=== PATIENT | female | born 1985 | race Caucasian/White ===

== ENCOUNTER 2020-03-23 08:21 | Day surgery (SDC) | payer BC ==
[~2020-03-23 08:21] MED LIST: 50% Dextrose in Water 50 ML Syringe IVPUSH PRN; Albuterol 0.083% 2.5 MG/3 ML Neb Soln NEB PRN; Atropine 0.1 MG/ML 10 ML Syringe IVPUSH PRN; EPINEPHrine 1:10,000 1 MG/10 ML Syringe IVPUSH PRN; Lactated Ringers 1,000 ML IV SCH; Lidocaine 2% 5 ML SDV ONE; Midazolam 1 MG/ML 2 ML SDV ONE; Naloxone 0.4 MG/ML Syringe IVPUSH PRN; Propofol 200 MG/20 ML SDV ONE; Sodium Chloride 0.9% 10 ML SDV IV PRN; Sodium Chloride 0.9% 10 ML Syringe FLUSH PRN; Sodium Chloride 0.9% 2.5 ML Syringe FLUSH PRN; fentaNYL 100 MCG/2 ML SDV IVPUSH PRN; fentaNYL 100 MCG/2 ML SDV ONE
--- NOTE | 2020-03-23 08:46 | PCM.PREANE ---
Preanesthetic Assessment - Anesthesia/Transfusion/Family Hx Anesthesia History: No Prior Anesthesia Other Type of Anesthesia Reaction Comment: "my father has a hard time coming out of anesthesia" Family History of Anesthesia Reaction: No Transfusion History: No Prior Transfusion(s) Intubation History: Unknown - Review of Systems General: No Symptoms Pulmonary: No Symptoms Cardiovascular: No Symptoms Gastrointestinal: No Symptoms Neurological: No Symptoms Other: Reports: None - Physical Assessment Height: 5 ft 6 in Weight: 70.307 kg ASA Class: 1 Mental Status: Alert & Oriented x3 Airway Class: Mallampati = 1 Dentition: Reports: Normal Dentition Thyro-Mental Finger Breadths: 3 Mouth Opening Finger Breadths: 3 ROM/Head Extension: Full Lungs: Clear to Auscultation, Normal Respiratory Effort Cardiovascular: Regular Rate, Regular Rhythm - Lab Values: Laboratory Last Values WBC 6.27 K/uL (4.0-11.0) 03/22/20 08:29 RBC 4.51 M/uL (4.30-5.90) 03/22/20 08:29 Hgb 13.7 g/dL (12.0-16.0) 03/22/20 08:29 Hct 40.7 % (36.0-46.0) 03/22/20 08:29 MCV 90.2 fL (80.0-98.0) 03/22/20 08:29 MCH 30.4 pg (27.0-32.0) 03/22/20 08:29 MCHC 33.7 g/dL (31.0-37.0) 03/22/20 08:29 RDW Std Deviation 39.6 fl (28.0-62.0) 03/22/20 08:29 RDW Coeff of Micah 12 % (11.0-15.0) 03/22/20 08:29 Plt Count 279 K/uL (150-400) 03/22/20 08:29 MPV 8.50 fL (7.40-12.00) 03/22/20 08:29 Urine HCG, Qual NEGATIVE (NEGATIVE) 03/22/20 08:29 - Allergies Allergies/Adverse Reactions: Allergies Allergy/AdvReac Type Severity Reaction Status Date / Time No Known Allergies Allergy Verified 03/19/20 08:57 - Blood Blood Available: No - Anesthesia Plan Pre-Op Medication Ordered: None - Acknowledgements Anesthesia Type Planned: MAC Pt an Appropriate Candidate for the Planned Anesthesia: Yes Alternatives and Risks of Anesthesia Discussed w Pt/Guardian: Yes Pt/Guardian Understands and Agrees with Anesthesia Plan: Yes PreAnesthesia Questionnaire - Past Health History Medical/Surgical History: Denies Medical/Surgical History HEENT History: Psychiatric History: Reports: Anxiety, Depression - Past Surgical History Head Surgeries/Procedures: Reports: None HEENT Surgical History: - SUBSTANCE USE Smoking Status *Q: Never Smoker - HOME MEDS Home Medications: Home Meds FLUoxetine HCl [Prozac] 20 mg PO DAILY 03/19/20 [History] busPIRone HCl [Buspirone HCl] 7.5 mg PO DAILY 03/19/20 [History] - CURRENT (IN HOUSE) MEDS Current Meds: Current Medications Albuterol (Proventil Neb Soln) 2.5 mg NEB ONETIME PRN PRN Reason: Wheezing Atropine Sulfate (Atropine 0.1 Mg/Ml) 0.5 mg IVPUSH ASDIRECTED PRN PRN Reason: Hypo-perfusion Atropine Sulfate (Atropine 0.1 Mg/Ml) 1 mg IVPUSH ASDIRECTED PRN PRN Reason: Hypo-Perfusion Dextrose/Water (Dextrose 50% In Water) 50 ml IVPUSH ASDIRECTED PRN PRN Reason: Hypoglycemia Epinephrine HCl (Epinephrine 1:10,000) 1 mg IVPUSH ASDIRECTED PRN PRN Reason: ACLS Guidelines Fentanyl (Sublimaze) 50 - 100 mcg IVPUSH Q5M PRN PRN Reason: Pain Lactated Ringer's (Ringers, Lactated) 1,000 mls @ 100 mls/hr IV ASDIRECTED LORENZO Naloxone HCl (Narcan) 0.1 mg IVPUSH ASDIRECTED PRN PRN Reason: Respiratory Depression Sodium Chloride (Saline Flush) 10 ml FLUSH ASDIRECTED PRN PRN Reason: Keep Vein Open Sodium Chloride (Saline Flush) 2.5 ml FLUSH ASDIRECTED PRN PRN Reason: Keep Vein Open Sodium Chloride (Normal Saline) 10 ml IV ASDIRECTED PRN PRN Reason: IV Use Discontinued Medications Fentanyl (Sublimaze) Confirm Administered Dose 100 mcg .ROUTE .STK-MED ONE Stop: 03/23/20 07:17 Lidocaine (Xylocaine-Mpf 2%) Confirm Administered Dose 5 ml .ROUTE .STK-MED ONE Stop: 03/23/20 07:16 Midazolam HCl (Versed 1 Mg/Ml) Confirm Administered Dose 2 mg .ROUTE .STK-MED ONE Stop: 03/23/20 07:17 Propofol (Diprivan 20 Ml) Confirm Administered Dose 400 mg .ROUTE .STK-MED ONE Stop: 03/23/20 07:17
[2020-03-23] MEDS ORDERED: Ketorolac 30 MG/ML SDV ONE (08:58)
--- NOTE | 2020-03-23 09:31 | PCM.OPNOTE ---
- General Post-Op/Procedure Note Date of Surgery/Procedure: 03/23/20 Operative Procedure(s): Colposcopy with Loop electrosurgical excision procedure Findings: ARMANDO Pre Op Diagnosis: ARMANDO III Post-Op Diagnosis: Same Anesthesia Technique: General LMA, Local (1% lidocaine with epinephrine) Primary Surgeon: Anastasia Sauceda Pathology: Anterior and posterior ectocervix Endocervix Fluid Replacement, Intraop: 900 EBL in mLs: 5 Complications: None known Condition: Good Free Text/Narrative:: Dictation no. [id number]
--- NOTE | 2020-03-23 09:39 | PCM.POSTAN ---
POST ANESTHESIA ASSESSMENT - MENTAL STATUS Mental Status: Alert, Oriented - VITAL SIGNS Vital Signs: Last Vital Signs Temp 36.2 C 03/23/20 09:16 Pulse 86 03/23/20 09:37 Resp 9 L 03/23/20 09:37 BP 95/62 03/23/20 09:37 Pulse Ox 100 03/23/20 09:37 - RESPIRATORY Respiratory Status: Respiratory Rate WNL, Airway Patent, O2 Saturation Stable - CARDIOVASCULAR CV Status: Pulse Rate WNL, Blood Pressure Stable - GASTROINTESTINAL GI Status: No Symptoms - PAIN Pain Score: 0 - POST OP HYDRATION Hydration Status: Adequate & Stable - OBSERVATIONS Free Text/Narrative:: No anesthesia problems
--- NOTE | 2020-03-23 10:15 | PCM48HPAN ---
Post Anesthesia Note - EVALUATION WITHIN 48HRS OF ANESTHETIC Vital Signs in Normal Range: Yes Patient Participated in Evaluation: Yes Respiratory Function Stable: Yes Airway Patent: Yes Cardiovascular Function Stable: Yes Hydration Status Stable: Yes Pain Control Satisfactory: Yes Nausea and Vomiting Control Satisfactory: Yes Mental Status Recovered: Yes Vital Signs: Last Vital Signs Temp 36.2 C 03/23/20 09:16 Pulse 73 03/23/20 09:40 Resp 14 03/23/20 09:40 BP 107/61 03/23/20 09:40 Pulse Ox 99 03/23/20 09:40 - COMMENTS/OBSERVATIONS Free Text/Narrative:: No anesthesia problems
--- NOTE | 2020-03-23 15:40 | OR ---
SURGEON: ANASTASIA SAUCEDA MD DATE OF PROCEDURE: 03/23/2020 PROCEDURE: Loop electrosurgical excision procedure. PREOPERATIVE DIAGNOSIS: Cervical intraepithelial neoplasia 3. POSTOPERATIVE DIAGNOSIS: Cervical intraepithelial neoplasia 3. PROCEDURE: Colposcopy with loop electrosurgical excision procedure. PRIMARY SURGEON: Anastasia Sauceda MD. MICA MACHINE OPERATOR: JEREMY Webber. ANESTHESIA: LMA, local anesthetic. COMPLICATIONS: None noted. ESTIMATED BLOOD LOSS: 5 mL. IV FLUIDS: 100 mL of crystalloid. FINDINGS: Cervical dysplasia. PATHOLOGY: 1. Anterior and posterior ectocervix. 2. Endocervix. DESCRIPTION OF PROCEDURE: The patient was taken to the operating room, where anesthesia was induced. She was prepped and draped in a dorsal lithotomy position. A coated open-sided Graves speculum was then entered into the vagina to visualize the cervix and acetic acid was placed over the cervix. The colposcope was then positioned and acetowhite changes were noted to the anterior portion of the cervix from 10 o'clock to 2 o'clock. Lugol solution was then applied over the cervix and similar abnormal findings were noted. An electrosurgical loop measuring 20 mm x 10 mm was then used to remove the abnormal area of the anterior cervix in a [id number] fashion. A second passage of the loop was then performed similarly in the posterior portion of the ectocervix. A 10 mm x 4 mm square loop was then used to remove small portion of the endocervix. A 5 mm Rollerball was then used to cauterize the entire bed of the area removed. Hemostasis was noted and Monsel solution was applied to the area. All instruments were then removed from the vagina. Sponge, lap, and needle counts were correct x2. The patient tolerated the procedure well and was taken back to Recovery in stable condition. GELY / MOIZ /[id number] MTDGordon
== END 2020-03-23 10:45 | disposition home or self-care (01) ==
LOC: MW.SDS 08:21
PROVIDERS: ATTEND Obstetrics & Gynecology
DX: N87.1 Moderate cervical dysplasia (principal); F41.9 Anxiety disorder, unspecified; F32.9 Major depressive disorder, single episode, unspecified; Z79.899 Other long term (current) drug therapy
CPT/HCPCS: 36415; 57461; 81025; 85027; J1885; J2001; J2250; J2704; J7120; 00940; 88305; 88307; J3010